=== PATIENT | female | born 1980 | race Caucasian/White ===

== ENCOUNTER 2023-08-13 19:35 | Emergency (ER) | payer OTHER ==
[~2023-08-13] VITALS: Ht 162.6 cm; Wt 99.8 kg
[2023-08-13 19:43] VITALS: BP 144/88; PULSE 86; RESP 16; TEMP 97.8; O2SAT 98
[2023-08-13 20:11] LABS: APPEARANCE,URINE CLOUDY (CLEAR); BILIRUBIN,URINE NEGATIVE (NEGATIVE); BLOOD, URINE TRACE-I (NEGATIVE); COLOR,URINE OTHER (YELLOW); LEUKOCYTE ESTERASE ,URINE 1+ (NEGATIVE); NITRITE, URINE NEGATIVE (NEGATIVE); PH,URINE 7.5 (5.0-9.0); PROTEIN,URINE NEGATIVE (NEGATIVE); UGLUCOSE NEGATIVE (NEGATIVE); UROBILINOGEN,URINE 0.2 EU/dL (0.2 - 1)
[2023-08-13 20:22] LABS: RBC,URINE 0-5 /HPF (0-5)
[2023-08-13 20:23] LABS: BACTERIA,URINE 10-30 (MOD) /HPF (None Seen); SQUAMOUS EPITHELIAL CELL,UR 4-10 (MOD) /LPF (0-3 (FEW))
[2023-08-13] MEDS: KETOROLAC 30 MG/ML VIAL IM ONE (20:51)
[2023-08-13] MEDS ORDERED: IBUP-2213 PO (22:00)
[2023-08-13] MEDS ORDERED: CEPH-588 PO (22:00)
== END 2023-08-13 22:04 | disposition home or self-care (01) ==
LOC: MED 19:35
DX: N39.0 Urinary tract infection, site not specified (principal); Z79.899 Other long term (current) drug therapy
CPT/HCPCS: 81001; 81025; 87086; 96372; 99283; J1885